=== PATIENT | female | born 1955 | race Caucasian/White ===

== ENCOUNTER 2018-09-07 05:31 | Inpatient (IN) | payer BC ==
[~2018-09-07] VITALS: Ht 177.8 cm; Wt 89.2 kg
[~2018-09-07 05:31] MED LIST: ASPI81CH PO; ATOR20 PO; BENA20 PO; CHOL10002; ESTMET; ESTR.75; FISH1000 PO; METO50 PO; PROACE100 PO; RXPROACE PO
[2018-09-07] MEDS ORDERED: AZIT250 PO (06:21)
[2018-09-07] MEDS ORDERED: PRED20 PO (06:21)
[2018-09-07] MEDS ORDERED: METO25 PO (06:22)
[2018-09-07] MEDS ORDERED: Ventolin/Prove6.7 GM (06:22)
[2018-09-07] MEDS ORDERED: ELIQUIS5 MG PO (06:22)
[2018-09-07] MEDS ORDERED: HYDHOMSY (06:22)
[2018-09-07] MEDS ORDERED: Benazepril HCl40 MG PO (06:22)
[2018-09-07 07:05] LABS: BASOPHILS ABSOLUTE AUTO 0.03 K/mm3 (0.00-0.23); BASOPHILS PERCENT AUTO 0 % (0-2); EOSINOPHILS ABSOLUTE AUTO 0.05 K/mm3 (0.00-0.68); EOSINOPHILS PERCENT AUTO 1 % (0-6); Hematocrit 40.6 % (33.0-51.0); IMMATURE GRAN ABSOLUTE AUTO 0.04 K/mm3 (0.00-0.10); IMMATURE GRAN PERCENT AUTO 0 % (0-1); LYMPHOCYTES ABSOLUTE AUTO 1.12 K/mm3 (0.84-5.20); LYMPHOCYTES PERCENT AUTO 13 % (21-46); MONOCYTES PERCENT AUTO 6 % (4-13); Mean Corpuscular HGB 31.6 pg (26.0-34.0); Mean Corpuscular Volume 99 fL (80-100); Mean Platelet Volume 9.6 fL (9.1-12.4); NEUTROPHILS ABSOLUTE AUTO 7.19 K/mm3 (1.96-9.15); NEUTROPHILS PERCENT AUTO 81 % (41-73); Platelet Count 268 K/mm3 (150-400); RDW Coefficient Variation 15.6 % (11.7-14.2); RDW Standard Deviation 56.7 fL (35.1-46.3); Red Blood Cell Count 4.11 M/mm3 (3.80-5.20); White Blood Cell Count 8.93 K/mm3 (4.00-11.30)
[2018-09-07 07:31] LABS: Alanine Aminotransfer (ALT/SGP 215 U/L (12-78); Albumin, Blood 3.6 g/dL (3.4-5.0); Alk Phos 139 U/L (50-136); Anion Gap 9 mmol/L (6-16); Aspartate Aminotrans (AST/SGOT 402 U/L (12-37); Bilirubin, Total 0.7 mg/dL (0.1-1.0); Blood Urea Nitrogen 6 mg/dL (8-24); CO2, Blood 29 mmol/L (21-32); Calcium, Blood 8.9 mg/dL (8.5-10.1); Chloride, Blood 98 mmol/L (98-108); Creatinine, Blood 0.75 mg/dL (0.40-1.00); Globulin, Blood 3.5 g/dL (2.2-4.0); Glomerular Filtration Rate >60 (60-); Glucose, Blood 131 mg/dL (70-99); Potassium, Blood 3.3 mmol/L (3.5-5.5); Sodium, Blood 136 mmol/L (136-145); Total Protein, Blood 7.1 g/dL (6.4-8.2)
--- NOTE | 2018-09-07 15:18 | NUR ---
Telephone report received from Willis Corcoran RN, at this time.
[2018-09-07] MEDS ORDERED: Flecainide Acet50 MG PO (16:09)
[2018-09-07] MEDS ORDERED: METO50ER PO (16:11)
[2018-09-07] MEDS ORDERED: ATOR40TA PO (16:12)
[2018-09-07 16:37] LABS: Source, Urine Voided
[2018-09-07 16:46] LABS: Appearance, Urine Clear (Clear); Bilirubin, Urine Neg (Neg); Blood, Urine 1+ (Neg); Color, Urine Yellow (P-Yellow); Glucose Qualitative, Urine 2+ (Neg); Ketones, Urine Neg (Neg); Leukocyte Esterase, Urine 1+ (Neg); Nitrite, Urine Pos (Neg); Protein, Urine Neg (Neg); Specific Gravity, Urine 1.015 (1.003-1.022); Urobilinogen, Urine NORM (Normal)
[2018-09-07 17:00] LABS: Bacteria Many /hpf; Red Blood Cells, Urine 0-2 /hpf (0-2); Squamous Epithelial Cells Few /hpf (Few); White Blood Cells, Urine 0-2 /hpf (0-5)
--- NOTE | 2018-09-08 00:15 | NUR ---
OXYGEN PLACE- PT WITH OXYGEN SATURATIONS OF 88-89% ON RA. O2 PLACED AT 1.5L AND SATURATIONS INCREASED TO >90% WITHIN TWO MINUTES. PT DENIES FEELING EXCESSIVELY DYSPNEIC WITH DESATURATION. WILL CONTINUE WITH MONITORING.
[2018-09-08 04:17] LABS: BASOPHILS ABSOLUTE AUTO 0.02 K/mm3 (0.00-0.23); BASOPHILS PERCENT AUTO 0 % (0-2); EOSINOPHILS PERCENT AUTO 0 % (0-6); Hematocrit 39.1 % (33.0-51.0); Hemoglobin 12.5 g/dL (11.5-16.0); IMMATURE GRAN ABSOLUTE AUTO 0.11 K/mm3 (0.00-0.10); IMMATURE GRAN PERCENT AUTO 1 % (0-1); LYMPHOCYTES ABSOLUTE AUTO 0.68 K/mm3 (0.84-5.20); LYMPHOCYTES PERCENT AUTO 5 % (21-46); MONOCYTES ABSOLUTE AUTO 0.47 K/mm3 (0.16-1.47); MONOCYTES PERCENT AUTO 4 % (4-13); Mean Corpuscular HGB 31.7 pg (26.0-34.0); Mean Corpuscular Volume 99 fL (80-100); Mean Platelet Volume 9.7 fL (9.1-12.4); NEUTROPHILS ABSOLUTE AUTO 11.43 K/mm3 (1.96-9.15); NEUTROPHILS PERCENT AUTO 90 % (41-73); NRBC ABSOLUTE 0.02 K/mm3 (0.00-0.02); NRBC Auto 0.2 /100 WBC (0.0-0.2); Platelet Count 260 K/mm3 (150-400); RDW Coefficient Variation 15.7 % (11.7-14.2); RDW Standard Deviation 56.6 fL (35.1-46.3); Red Blood Cell Count 3.94 M/mm3 (3.80-5.20); White Blood Cell Count 12.71 K/mm3 (4.00-11.30)
[2018-09-08 04:43] LABS: Alanine Aminotransfer (ALT/SGP 132 U/L (12-78); Albumin, Blood 3.3 g/dL (3.4-5.0); Albumin/Globulin Ratio 0.9 (0.8-1.8); Alk Phos 104 U/L (50-136); Anion Gap 8 mmol/L (6-16); Aspartate Aminotrans (AST/SGOT 82 U/L (12-37); Bilirubin, Total 0.6 mg/dL (0.1-1.0); Blood Urea Nitrogen 8 mg/dL (8-24); CO2, Blood 29 mmol/L (21-32); Calcium, Blood 8.6 mg/dL (8.5-10.1); Chloride, Blood 105 mmol/L (98-108); Globulin, Blood 3.6 g/dL (2.2-4.0); Glomerular Filtration Rate >60 (60-); Glucose, Blood 174 mg/dL (70-99); Potassium, Blood 3.9 mmol/L (3.5-5.5); Sodium, Blood 142 mmol/L (136-145); Total Protein, Blood 6.9 g/dL (6.4-8.2)
[2018-09-08 06:13] LABS: HBSAG SCREEN Negative (Negative); HEP B CORE AB, TOT Negative (Negative); HEP C VIRUS AB <0.1 (0.0-0.9)
--- NOTE | 2018-09-08 06:48 | NUR ---
SHIFT SUMMARY- PT HAS REMAINED AOX4 THROUGHOUT SHIFT. VSS. PLEASANT AND COOPERATIVE WITH CARE. PT CONTINUES TO BE UP INDEPENDENTLY IN ROOM WITHOUT DIFFICULTY WITH AMBULATION. PT DOES REPORT SOME DYSPNEA ON EXERTION. BSC COMMODE PROVIDED AT BEDSIDE AND PATIENT ENCOURAGED TO UTILIZE IF SHE IS FEELING EXCESSIVELY DYSPNEIC. O2 SATS HAVE REMAINED >90% SINCE 1.5L VIA NASAL CANNULA PLACED LAST NIGHT. PT REPORTS THAT SHE HAS NOT NOTICED A SIGNIFICANT CHANGE WITH OR WITHOUT OXYGEN, BUT REPORTS THAT SHE WAS ABLE TO SLEEP BETTER ONCE IT WAS PLACED. NO OTHER CHANGES NOTED FROM INITIAL ASSESSMENT. WILL CONTINUE TO MONITOR AND REPORT TO ONCOMING RN. BED IN LOW POSITION, CALL LIGHT IN REACH.
--- NOTE | 2018-09-08 09:57 | NUR ---
Virgilio states that she feels that her breathing is much better than yesterday, but reports that she still has quite a lot of shortness of breath when walking into the bathroom, and is still coughing often. States that sputum is yellow in color and she is starting to get it up more easily. no dyspnea or tachypnea noted at rest. No other compliants or concerns voiced at this time. Heart rhythm is normal sinus rhythm.
--- NOTE | 2018-09-08 18:37 | NUR ---
The pt was able to ambulate once in the hallway today, and has also been ambulatory to the bathroom and in her room; however, she does have frequent coughing episodes, with minimal expectoration of phlegm. Dr. Mota started her on mucinex today for that. Once today she was very anxious, tearful and stated that she was feeling "overwhelmed" and short of breath. This occured just after a "coughing fit" in which she was unable to breathe she felt, and panicked. Oral ativan was given to her, as well as Tylenol to reduce her anxiety and headache which she had from the frequent coughing. She stated afterwards that this was very helpful. I also called Jena Becerril to pay the pt a visit as the pt states she has been going through a lot of stress recently; her father just before 2017, and her has dialysis 3 x /week, 5 hours each time. This hospitalization has of course added to her recent stress level.
--- NOTE | 2018-09-09 04:40 | NUR ---
SHIFT SUMMARY THE PATIENT PRESENTED THIS SHIFT WITH VITALS WNL, A&O X4 AND WITH LUNGS THAT WERE CLEAR, BUT DIM AT THE BASES, THE PATIENT RECEIVED MEDICATIONS FOR ANXIETY AND FOR RADIP HEART RATE (A-FIB), WHICH STARTED AT 0230. THE PATIENT IS A-SYMPTOMATIC, SLEEPING AT THAT TIME. THE PATIENT IS SLEEPING AT THIS TIME, WILL CONTINUE TO MONITOR.
[2018-09-09 08:56] LABS: Hematocrit 44.4 % (33.0-51.0); Hemoglobin 14.5 g/dL (11.5-16.0); Mean Corpuscular HGB 31.6 pg (26.0-34.0); Mean Corpuscular HGB Conc 32.7 g/dL (31.5-36.5); Mean Corpuscular Volume 97 fL (80-100); Mean Platelet Volume 9.8 fL (9.1-12.4); NRBC ABSOLUTE 0.02 K/mm3 (0.00-0.02); NRBC Auto 0.1 /100 WBC (0.0-0.2); Platelet Count 322 K/mm3 (150-400); RDW Coefficient Variation 15.8 % (11.7-14.2); Red Blood Cell Count 4.59 M/mm3 (3.80-5.20); White Blood Cell Count 18.05 K/mm3 (4.00-11.30)
--- NOTE | 2018-09-09 09:01 | NUR ---
NURSING PCU DAYSHIFT: Assumed care of pt at approx 0700. A/O, very pleasant and cooperative w/care. Denies any pain/discomfort. Very mild general weakness, able to ambulate independently and w/o difficulty. Skin is intact w/no breakdown noted. Tele in place, afib w/HR 140-150's, no c/o CP/pressure, BP stable, no noted edema. L/S fairly cta t/o w/dim bases, O2 sat 90 on RA, dyspnea w/minimal exertion, constant hacking cough producing thick/yellow sputum. Abd SNT, c/o loose stools, BT+, voiding w/o difficulty per pt. PIV x1, s/l w/abx as scheduled. No s/s of acute distress at this time. Call light in reach and pt is able to use w/o difficulty. Denies any current needs or questions regarding plan of care, awaiting rounding from PMD, cont to monitor for any changes.
[2018-09-09 09:18] LABS: Alanine Aminotransfer (ALT/SGP 112 U/L (12-78); Albumin, Blood 3.6 g/dL (3.4-5.0); Albumin/Globulin Ratio 0.9 (0.8-1.8); Alk Phos 102 U/L (50-136); Anion Gap 10 mmol/L (6-16); Aspartate Aminotrans (AST/SGOT 48 U/L (12-37); Bilirubin, Total 0.6 mg/dL (0.1-1.0); Blood Urea Nitrogen 14 mg/dL (8-24); Bun/Creatinine Ratio 17.2 (12.0-20.0); CO2, Blood 26 mmol/L (21-32); Calcium, Blood 9.4 mg/dL (8.5-10.1); Chloride, Blood 104 mmol/L (98-108); Creatinine, Blood 0.81 mg/dL (0.40-1.00); Globulin, Blood 3.8 g/dL (2.2-4.0); Glomerular Filtration Rate >60 (60-); Glucose, Blood 196 mg/dL (70-99); Potassium, Blood 4.2 mmol/L (3.5-5.5); Sodium, Blood 140 mmol/L (136-145); Total Protein, Blood 7.4 g/dL (6.4-8.2)
--- NOTE | 2018-09-09 17:41 | NUR ---
NURSING PCU DAYSHIFT SUMMARY: No significant changes noted t/o the shift. HR remains 130-160's though pt is non-symptomatic. Continues to cough frequently and experience dyspnea w/exertion. Able to ambulate halls slowly and participate in deep breathing exercises. Family at bedside t/o the afternoon, update provided, questions answered. Spoke w/PMD regarding HR, new d/o received. OT IV metoprolol to be administered as ordered. Tele remains in place, cont to monitor until rpt is given to NOC RN.
[2018-09-10 04:21] LABS: BASOPHILS ABSOLUTE AUTO 0.03 K/mm3 (0.00-0.23); BASOPHILS PERCENT AUTO 0 % (0-2); EOSINOPHILS ABSOLUTE AUTO 0.04 K/mm3 (0.00-0.68); EOSINOPHILS PERCENT AUTO 0 % (0-6); Hematocrit 43.9 % (33.0-51.0); Hemoglobin 14.1 g/dL (11.5-16.0); IMMATURE GRAN ABSOLUTE AUTO 0.21 K/mm3 (0.00-0.10); IMMATURE GRAN PERCENT AUTO 1 % (0-1); LYMPHOCYTES PERCENT AUTO 15 % (21-46); MONOCYTES ABSOLUTE AUTO 1.06 K/mm3 (0.16-1.47); MONOCYTES PERCENT AUTO 7 % (4-13); Mean Corpuscular HGB 31.1 pg (26.0-34.0); Mean Corpuscular HGB Conc 32.1 g/dL (31.5-36.5); Mean Corpuscular Volume 97 fL (80-100); Mean Platelet Volume 9.8 fL (9.1-12.4); NEUTROPHILS PERCENT AUTO 76 % (41-73); Platelet Count 298 K/mm3 (150-400); RDW Coefficient Variation 15.7 % (11.7-14.2); RDW Standard Deviation 55.3 fL (35.1-46.3); Red Blood Cell Count 4.53 M/mm3 (3.80-5.20); White Blood Cell Count 14.64 K/mm3 (4.00-11.30)
[2018-09-10 04:42] LABS: Anion Gap 7 mmol/L (6-16); Blood Urea Nitrogen 15 mg/dL (8-24); Bun/Creatinine Ratio 15.6 (12.0-20.0); CO2, Blood 29 mmol/L (21-32); Calcium, Blood 8.8 mg/dL (8.5-10.1); Chloride, Blood 105 mmol/L (98-108); Creatinine, Blood 0.96 mg/dL (0.40-1.00); Glomerular Filtration Rate >60 (60-); Glucose, Blood 94 mg/dL (70-99); Potassium, Blood 4.2 mmol/L (3.5-5.5); Sodium, Blood 141 mmol/L (136-145)
--- NOTE | 2018-09-10 05:52 | NUR ---
SHIFT SUMMARY PT ALERT AND ORIENTED X 3. SHE SLEPT WELL T/O SHIFT. PT DENIED ANY UNMET NEEDS. HER RATE HAS BEEN WELL CONTROLLED AFIB IN THE 80'S. SHE HAS BEEN INDEPENDENT IN THE ROOM. SHE DID HAVE SOME COMPLAINTS OF HEADACHE AND LUNG PAIN RELATED TO COUGHING. SHE WAS PROVIDED ORDERED MEDS AND DENIED ANY FURTHER ISSUES. PT USES CALL LIGHT TO MAKE NEEDS KNOWN. SHE WILL CONTINUE TO BE MONITORED UNTIL HANDOFF TO DAYSHIFT RN.
--- NOTE | 2018-09-10 08:14 | NUR ---
NURSING PCU DAYSHIFT: Assumed care of pt at approx 0700. A/O, pleasant, cooperative w/care. C/O 6-8/10 chest/rib pain r/t coughing, treating w/meds as ordered and rest. Skin is intact w/no breakdown noted. Ambulates independently w/o difficulty. Tele in place, afib w/HR 130-140, no c/o cardiac related CP/pressure, HTN noted, no noted edema. L/S fairlyc cta t/o, O2 sat 90's on RA, dyspnea w/exertion, hacking/productive cough. Abd SNT, BT+, c/o loose stool, voiding clear/yellow urine. PIV x1, s/l. No s/s of acute distress at this time. Plan to monitor HR after administration of a.m. meds, will give PRN metoprolol if indication. Pt denies any current needs or questions regarding plan of care, call light in reach. Awaiting rounding from PMD, cont to monitor for any changes.
[2018-09-10] MEDS ORDERED: METO50ER PO (18:33)
[2018-09-10] MEDS ORDERED: ACETAMINOPHEN500 MG PO (18:34)
[2018-09-10] MEDS ORDERED: GUAI600T33 PO (18:36)
[2018-09-10] MEDS ORDERED: LANOXIN125 MCG PO (18:36)
[2018-09-10] MEDS ORDERED: LEVFLO500 PO (18:37)
--- NOTE | 2018-09-10 19:13 | NUR ---
NURSING PCU DISCHARGE SUMMARY: No acute changes t/o the shift. Seen by PMD, new d/o received. Digoxin gtt administered, PO metoprolol dose increased. HR showed some improvement t/o the afternoon w/HR 90-130's, respiratory status unchanged. Seen by PMD again in the afternoon, discharge home d/o received. Pt verbalized understanding of all written and verbal discharge instructions provided by CN. PIV dc'd w/cath intact, escorted from unit via w/c, no s/s of acute distress at that time.
== END 2018-09-10 19:05 | disposition home or self-care (01) | DRG 189 ==
LOC: ER 05:31 → PCU 12:47
PROVIDERS: Internal Medicine; ADMIT Family Medicine
DX: J96.21 Acute and chronic respiratory failure with hypoxia (principal); N39.0 Urinary tract infection, site not specified; J44.1 Chronic obstructive pulmonary disease with (acute) exacerbation; B96.20 Unspecified Escherichia coli [E. coli] as the cause of diseases classified elsewhere; K80.20 Calculus of gallbladder without cholecystitis without obstruction; K75.81 Nonalcoholic steatohepatitis (NASH); I48.0 Paroxysmal atrial fibrillation; E11.9 Type 2 diabetes mellitus without complications; I10 Essential (primary) hypertension; E87.6 Hypokalemia; R79.89 Other specified abnormal findings of blood chemistry; E78.5 Hyperlipidemia, unspecified; Z88.5 Allergy status to narcotic agent; Z79.52 Long term (current) use of systemic steroids; Z79.899 Other long term (current) drug therapy; Z87.891 Personal history of nicotine dependence
CPT/HCPCS: 36415; 71046; 76700; 80048; 80053; 81001; 83690; 85025; 85027; 86317; 86704; 86708; 86803; 87070; 87077; 87086; 87186; 87205; 87340; 93005; 93010; 94640; 94644; 94760; 94762; 96365; 96375; 99285-25; J0456; J0696; J1160; J2930; J7050

== ENCOUNTER → 2020-05-16 | Outpatient (CLI) | payer BC ==
[~2020-05-16] MED LIST changes: +ACETAMINOPHEN500 MG PO; +ATOR40TA PO; +AZIT250 PO; +Benazepril HCl40 MG PO; +ELIQUIS5 MG PO; +Flecainide Acet50 MG PO; +GUAI600T33 PO; +HYDHOMSY; +LANOXIN125 MCG PO; +LEVFLO500 PO; +METO25 PO; +METO50ER PO; +PRED20 PO; +Ventolin/Prove6.7 GM
== END | disposition home or self-care (01) ==
LOC: LAB SHORT 08:45 → LAB EV 08:45
DX: N39.0 Urinary tract infection, site not specified (principal)
CPT/HCPCS: 87077; 87086; 87186

== ENCOUNTER 2022-09-26 23:52 | Emergency (ER) | payer OTHER, BC ==
[~2022-09-26] VITALS: Ht 177.8 cm; Wt 72.6 kg
[2022-09-27 01:39] LABS: Source, Urine Clean Catch
[2022-09-27 01:51] LABS: Appearance, Urine Hazy (Clear); Bilirubin, Urine Neg (Neg); Blood, Urine Neg (Neg); Color, Urine Yellow (P-Yellow); Glucose Qualitative, Urine Neg (Neg); Ketones, Urine Neg (Neg); Leukocyte Esterase, Urine 1+ (Neg); Nitrite, Urine Pos (Neg); Protein, Urine 1+ (Neg); Specific Gravity, Urine 1.025 (1.003-1.022); Urobilinogen, Urine 1+ (Normal)
[2022-09-27 01:59] LABS: Bacteria Many /hpf; Red Blood Cells, Urine 0-2 /hpf (0-2); Squamous Epithelial Cells Mod /hpf (Few)
== END 2022-09-27 02:19 | disposition home or self-care (01) ==
LOC: ER 23:52
PROVIDERS: Student in an Organized Health Care Education/Training Program
DX: R10.32 Left lower quadrant pain (principal); W01.198A Fall on same level from slipping, tripping and stumbling with subsequent striking against other object, initial encounter; I48.0 Paroxysmal atrial fibrillation; I10 Essential (primary) hypertension; E11.9 Type 2 diabetes mellitus without complications; Z88.5 Allergy status to narcotic agent; Z79.899 Other long term (current) drug therapy; Z79.01 Long term (current) use of anticoagulants; Z87.891 Personal history of nicotine dependence
CPT/HCPCS: 71101; 81001; 87077; 87086; 87186; 96372; 99284-25; A9270; J1885

== ENCOUNTER 2023-04-11 00:16 | Emergency (ER) | payer OTHER ==
[~2023-04-11] VITALS: Ht 177.8 cm; Wt 69.4 kg
[2023-04-11 01:02] LABS: BASOPHILS ABSOLUTE AUTO 0.12 K/mm3 (0.00-0.23); BASOPHILS PERCENT AUTO 2 % (0-2); EOSINOPHILS ABSOLUTE AUTO 0.38 K/mm3 (0.00-0.68); EOSINOPHILS PERCENT AUTO 5 % (0-6); Hematocrit 41.5 % (33.0-51.0); Hemoglobin 13.7 g/dL (11.5-16.0); IMMATURE GRAN ABSOLUTE AUTO 0.02 K/mm3 (0.00-0.10); IMMATURE GRAN PERCENT AUTO 0 % (0-1); LYMPHOCYTES ABSOLUTE AUTO 2.04 K/mm3 (0.84-5.20); LYMPHOCYTES PERCENT AUTO 29 % (21-46); MONOCYTES ABSOLUTE AUTO 0.64 K/mm3 (0.16-1.47); MONOCYTES PERCENT AUTO 9 % (4-13); Mean Corpuscular HGB 32.2 pg (26.0-34.0); Mean Corpuscular Volume 98 fL (80-100); Mean Platelet Volume 9.3 fL (9.1-12.4); NEUTROPHILS ABSOLUTE AUTO 3.87 K/mm3 (1.96-9.15); NEUTROPHILS PERCENT AUTO 55 % (41-73); Platelet Count 279 K/mm3 (150-400); RDW Standard Deviation 50.7 fL (35.1-46.3); Red Blood Cell Count 4.25 M/mm3 (3.80-5.20); White Blood Cell Count 7.07 K/mm3 (4.00-11.30)
[2023-04-11 01:27] LABS: Albumin, Blood 3.3 g/dL (3.4-5.0); Albumin/Globulin Ratio 0.9 (0.8-1.8); Bilirubin, Total 0.4 mg/dL (0.1-1.0); Bun/Creatinine Ratio 5.2 (12.0-20.0); Calcium, Blood 8.8 mg/dL (8.5-10.1); Creatinine, Blood 0.58 mg/dL (0.40-1.00); Globulin, Blood 3.6 g/dL (2.2-4.0); Potassium, Blood 3.9 mmol/L (3.5-5.5); Total Protein, Blood 6.9 g/dL (6.4-8.2)
[2023-04-11] MEDS ORDERED: PRED20 PO (04:23)
[2023-04-11 04:49] VITALS: BP 121/74
== END 2023-04-11 04:49 | disposition home or self-care (01) ==
LOC: ER 00:16
PROVIDERS: Physician Assistant
DX: J44.1 Chronic obstructive pulmonary disease with (acute) exacerbation (principal); I48.20 Chronic atrial fibrillation, unspecified; I10 Essential (primary) hypertension; E11.9 Type 2 diabetes mellitus without complications; Z20.822 Contact with and (suspected) exposure to COVID-19; Z88.5 Allergy status to narcotic agent; Z79.899 Other long term (current) drug therapy; Z79.01 Long term (current) use of anticoagulants; Z79.51 Long term (current) use of inhaled steroids; Z87.891 Personal history of nicotine dependence
CPT/HCPCS: 71046; 80053; 85025; 93005; 93010; 94640; 94664; 99285-25; A9270; J7512

== ENCOUNTER → 2023-11-14 | Outpatient (CLI) | payer MEDICARE | LOC: LAB SHORT 10:28 → LAB 10:28 | DX: R30.0 Dysuria (principal); R35.0 Frequency of micturition | CPT/HCPCS: 87077; 87086; 87186 ==

== ENCOUNTER 2024-02-22 10:01 | Emergency (ER) | payer OTHER, MEDICARE ==
[~2024-02-22] VITALS: Ht 175.3 cm; Wt 70.3 kg
[2024-02-22] MEDS ORDERED: Metoclopramide HCl 5MG / ML 2ML Vial IV ONE (10:20)
[2024-02-22] MEDS ORDERED: DiphenhydrAMINE HCl 50 MG/ML 1ML Vial IV ONE (10:20)
[2024-02-22] MEDS ORDERED: NS 1,000 ML IV SCH (10:20)
[2024-02-22 10:26] LABS: BASOPHILS ABSOLUTE AUTO 0.14 K/mm3 (0.00-0.23); BASOPHILS PERCENT AUTO 1 % (0-2); EOSINOPHILS ABSOLUTE AUTO 0.05 K/mm3 (0.00-0.68); EOSINOPHILS PERCENT AUTO 0 % (0-6); Hematocrit 40.6 % (33.0-51.0); Hemoglobin 14.2 g/dL (11.5-16.0); IMMATURE GRAN ABSOLUTE AUTO 0.03 K/mm3 (0.00-0.10); IMMATURE GRAN PERCENT AUTO 0 % (0-1); LYMPHOCYTES ABSOLUTE AUTO 0.77 K/mm3 (0.84-5.20); LYMPHOCYTES PERCENT AUTO 7 % (21-46); MONOCYTES ABSOLUTE AUTO 0.66 K/mm3 (0.16-1.47); MONOCYTES PERCENT AUTO 6 % (4-13); Mean Corpuscular HGB 33.8 pg (26.0-34.0); Mean Corpuscular Volume 97 fL (80-100); Mean Platelet Volume 9.8 fL (9.1-12.4); NEUTROPHILS ABSOLUTE AUTO 10.05 K/mm3 (1.96-9.15); NEUTROPHILS PERCENT AUTO 86 % (41-73); Platelet Count 367 K/mm3 (150-400); RDW Coefficient Variation 13.9 % (11.7-14.2); RDW Standard Deviation 48.7 fL (35.1-46.3)
[2024-02-22 10:46] LABS: Alanine Aminotransfer (ALT/SGP 44 U/L (12-78); Albumin, Blood 3.1 g/dL (3.4-5.0); Albumin/Globulin Ratio 0.8 (0.8-1.8); Alk Phos 192 U/L (50-136); Anion Gap 18 mmol/L (3-11); Aspartate Aminotrans (AST/SGOT 145 U/L (12-37); Blood Urea Nitrogen 6 mg/dL (8-24); Bun/Creatinine Ratio 12.5 (12.0-20.0); CO2, Blood 22 mmol/L (21-32); Calcium, Blood 8.4 mg/dL (8.5-10.1); Chloride, Blood 95 mmol/L (98-108); Creatinine, Blood 0.48 mg/dL (0.40-1.00); Glomerular Filtration Rate 104 (60-); Glucose, Blood 142 mg/dL (70-99); Magnesium, Blood 1.2 mg/dL (1.6-2.4); Potassium, Blood 4.1 mmol/L (3.5-5.5); Sodium, Blood 131 mmol/L (136-145); Total Protein, Blood 7.1 g/dL (6.4-8.2)
[2024-02-22 11:44] LABS: Influenza A, PCR NEGATIVE (NEGATIVE); Influenza B, PCR NEGATIVE (NEGATIVE); Resp Syncytial Virus, PCR NEGATIVE (NEGATIVE)
[2024-02-22 11:53] LABS: SARS-Cov-2 (COVID-19) PCR, MMC POSITIVE (NEGATIVE)
[2024-02-22] MEDS ORDERED: Magnesium Sulf 2 GM/Water 50ML 50 ML IV ONE (12:00)
[2024-02-22 13:13] LABS: Source, Urine Clean Catch
[2024-02-22] MEDS ORDERED: Metoprolol Succinate 50 MG TABCR PO ONE (13:15)
[2024-02-22 13:17] LABS: Appearance, Urine Clear (Clear); Bilirubin, Urine Neg (Neg); Blood, Urine 1+ (Neg); Color, Urine Yellow (P-Yellow); Glucose Qualitative, Urine Neg (Neg); Ketones, Urine 2+ (Neg); Leukocyte Esterase, Urine 1+ (Neg); Nitrite, Urine Neg (Neg); Protein, Urine 1+ (Neg); Specific Gravity, Urine 1.015 (1.003-1.022); Urobilinogen, Urine 1+ (Normal); pH, Urine 6.5 (5.0-8.0)
[2024-02-22 13:25] LABS: Bacteria Rare /hpf; Red Blood Cells, Urine 0-2 /hpf (0-2); Squamous Epithelial Cells Rare /hpf (Few)
[2024-02-22 14:13] LABS: Digoxin (Lanoxin) 0.52 ug/mL (0.80-2.00)
[2024-02-22] MEDS ORDERED: Digoxin 0.25 MG Tab PO ONE (14:30)
[2024-02-22 15:04] VITALS: BP 141/89
[2024-02-22] MEDS ORDERED: METO10 PO (15:10)
[2024-02-22] MEDS ORDERED: Metoclopramide HCl 10 MG Tab PO ONE (15:25)
== END 2024-02-22 15:35 | disposition home or self-care (01) ==
LOC: ER 10:01
PROVIDERS: Student in an Organized Health Care Education/Training Program
DX: U07.1 COVID-19 (principal); S09.90XA Unspecified injury of head, initial encounter; E83.42 Hypomagnesemia; E11.65 Type 2 diabetes mellitus with hyperglycemia; I10 Essential (primary) hypertension; I48.0 Paroxysmal atrial fibrillation; W01.0XXA Fall on same level from slipping, tripping and stumbling without subsequent striking against object, initial encounter; Z87.891 Personal history of nicotine dependence; Z79.52 Long term (current) use of systemic steroids; Z79.899 Other long term (current) drug therapy; Z88.5 Allergy status to narcotic agent
CPT/HCPCS: 0241U; 70450; 72125; 80053; 80162; 81001; 83690; 83735; 84484; 85025; 87086; 93005; 93010; 96361; 96365; 96366; 96375; 99285-25; A9270; J1200; J2765; J3475; J7030

== ENCOUNTER 2024-04-03 08:49 | Inpatient (IN) | payer MEDICARE ==
[~2024-04-03] VITALS: Ht 178 cm; Wt 72.1 kg
[~2024-04-03 08:49] MED LIST changes: +AMOX-CLAV 875-1 EAC5 PO; +BENAZEPRIL HCL10 MG PO; +DIGOX125 MC1 PO; +METO10 PO; +NEURONTIN300 MG PO; +ONDA4ODT MM; +Toprol Xl200 MG PO
[2024-04-03 09:27] LABS: BASOPHILS ABSOLUTE AUTO 0.16 K/mm3 (0.00-0.23); BASOPHILS PERCENT AUTO 1 % (0-2); EOSINOPHILS ABSOLUTE AUTO 2.77 K/mm3 (0.00-0.68); EOSINOPHILS PERCENT AUTO 24 % (0-6); Hematocrit 41.2 % (33.0-51.0); Hemoglobin 13.9 g/dL (11.5-16.0); IMMATURE GRAN ABSOLUTE AUTO 0.02 K/mm3 (0.00-0.10); IMMATURE GRAN PERCENT AUTO 0 % (0-1); LYMPHOCYTES ABSOLUTE AUTO 1.24 K/mm3 (0.84-5.20); LYMPHOCYTES PERCENT AUTO 11 % (21-46); MONOCYTES ABSOLUTE AUTO 0.94 K/mm3 (0.16-1.47); MONOCYTES PERCENT AUTO 8 % (4-13); Mean Corpuscular HGB 34.2 pg (26.0-34.0); Mean Corpuscular HGB Conc 33.7 g/dL (31.5-36.5); Mean Corpuscular Volume 101 fL (80-100); Mean Platelet Volume 9.4 fL (9.1-12.4); NEUTROPHILS ABSOLUTE AUTO 6.47 K/mm3 (1.96-9.15); NEUTROPHILS PERCENT AUTO 56 % (41-73); Platelet Count 329 K/mm3 (150-400); RDW Standard Deviation 56.1 fL (35.1-46.3); Red Blood Cell Count 4.07 M/mm3 (3.80-5.20)
[2024-04-03 09:43] LABS: Albumin/Globulin Ratio 0.8 (0.8-1.8); Bilirubin, Total 0.7 mg/dL (0.1-1.0); Bun/Creatinine Ratio 11.7 (12.0-20.0); Calcium, Blood 8.9 mg/dL (8.5-10.1); Creatinine, Blood 0.52 mg/dL (0.40-1.00); Globulin, Blood 3.9 g/dL (2.2-4.0); Potassium, Blood 4.2 mmol/L (3.5-5.5); Total Protein, Blood 6.9 g/dL (6.4-8.2)
[2024-04-03] MEDS ORDERED: Albuterol 2.5 MG/3 ML VIAL INH SCH (11:30)
[2024-04-03] MEDS ORDERED: MethylPREDNISolone Sod Succ 125 MG Vial IV ONE (11:30)
[2024-04-03] MEDS ORDERED: Ipratropium/Albuterol SulF 2.5-0.5MG/3 ML Amp INH ONE (12:55)
[2024-04-03] MEDS ORDERED: Ipratropium/Albuterol SulF 2.5-0.5MG/3 ML Amp INH SCH (13:05)
[2024-04-03] MEDS ORDERED: Albuterol 2.5 MG/3 ML VIAL INH PRN (13:10)
[2024-04-03 13:53] VITALS: BP 142/71
[2024-04-03] MEDS ORDERED: Cefepime HCl 2,000 MG in NS 100 ML IV SCH (14:00)
--- NOTE | 2024-04-03 16:53 | NUR ---
NEW ADMIT ARRIVED A/O VERY PLEASENT AND COOPERATIVE, PT VERY TREMULOUS AND AFEBRILE, ADMISSION DATA BASE DONE. PT CALMLY LAYING IN BED AND HAS NO S/S OF DISTRESS NO C/O PAIN
[2024-04-03] MEDS ORDERED: MethylPREDNISolone Sod Succ 40 MG VIAL IV SCH (18:00)
[2024-04-03] MEDS ORDERED: NS 250 ML IV PRN (19:20)
[2024-04-03 19:52] VITALS: BP 147/79
[2024-04-03] MEDS ORDERED: Apixaban 5 MG Tab PO SCH (21:00)
[2024-04-03] MEDS ORDERED: Gabapentin 300 MG Cap PO SCH (21:00)
[2024-04-03] MEDS ORDERED: Metoprolol Succinate 50 MG TABCR PO SCH (21:00)
--- NOTE | 2024-04-03 23:25 | NUR ---
RESPIRATORY PANEL SWAB COLLECTED AND SENT TO LAB.
[2024-04-04 00:03] LABS: Influenza A, PCR NEGATIVE (NEGATIVE); Influenza B, PCR NEGATIVE (NEGATIVE); Resp Syncytial Virus, PCR NEGATIVE (NEGATIVE); SARS-Cov-2 (COVID-19) PCR, MMC NEGATIVE (NEGATIVE)
[2024-04-04] MEDS ORDERED: Loperamide HCl 2 MG Cap PO PRN (01:35)
--- NOTE | 2024-04-04 04:04 | NUR ---
SHIFT SUMMARY PATIENT HAD NO ACUTE CHANGES. AXOX 4, TREMULOUS, AND INDEPENDENT IN ROOM. ELLE CHEST PAIN AND N/V. VSS/AFEBRILE. RT IN FOR BREATHING TX. TELE MONITOR AFIB 100. REPORTED DIARRHEA AT SHIFT CHANGE AND HOSPITALIST DR FIGUEROA ORDERED IMODIUM 2 MG Q4 PRN. NON NEEDED AT THIS TIME. REPORTS HER A FEW WEEKS AGO AND MISSES HIS PHONE CALLS. CALL LIGHT IN REACH. BED IN LOWEST POSITION. WILL CONTINUE TO MONITOR UNTIL DAY SHIFT NURSE ASSUMES CARE.
[2024-04-04 04:23] VITALS: BP 146/95
[2024-04-04 05:12] LABS: BASOPHILS PERCENT AUTO 0 % (0-2); EOSINOPHILS ABSOLUTE AUTO 0.01 K/mm3 (0.00-0.68); EOSINOPHILS PERCENT AUTO 0 % (0-6); Hematocrit 38.9 % (33.0-51.0); Hemoglobin 13.1 g/dL (11.5-16.0); IMMATURE GRAN ABSOLUTE AUTO 0.05 K/mm3 (0.00-0.10); IMMATURE GRAN PERCENT AUTO 1 % (0-1); LYMPHOCYTES ABSOLUTE AUTO 0.67 K/mm3 (0.84-5.20); LYMPHOCYTES PERCENT AUTO 8 % (21-46); MONOCYTES ABSOLUTE AUTO 0.37 K/mm3 (0.16-1.47); MONOCYTES PERCENT AUTO 4 % (4-13); Mean Corpuscular HGB Conc 33.7 g/dL (31.5-36.5); Mean Corpuscular Volume 101 fL (80-100); Mean Platelet Volume 9.9 fL (9.1-12.4); NEUTROPHILS ABSOLUTE AUTO 7.22 K/mm3 (1.96-9.15); NEUTROPHILS PERCENT AUTO 87 % (41-73); Platelet Count 283 K/mm3 (150-400); RDW Coefficient Variation 14.6 % (11.7-14.2); RDW Standard Deviation 54.7 fL (35.1-46.3); Red Blood Cell Count 3.85 M/mm3 (3.80-5.20); White Blood Cell Count 8.32 K/mm3 (4.00-11.30)
[2024-04-04 05:53] LABS: Anion Gap 14 mmol/L (3-11); Blood Urea Nitrogen 9 mg/dL (8-24); Bun/Creatinine Ratio 18.2 (12.0-20.0); CO2, Blood 24 mmol/L (21-32); Calcium, Blood 9.5 mg/dL (8.5-10.1); Chloride, Blood 100 mmol/L (98-108); Digoxin (Lanoxin) 1.06 ug/mL (0.80-2.00); Glomerular Filtration Rate 103 (60-); Glucose, Blood 158 mg/dL (70-99); Potassium, Blood 5.2 mmol/L (3.5-5.5); Sodium, Blood 133 mmol/L (136-145)
[2024-04-04 08:21] VITALS: BP 140/95
[2024-04-04] MEDS ORDERED: Gabapentin 300 MG Cap PO SCH (09:00)
[2024-04-04] MEDS ORDERED: Aspirin 81 MG Chew PO SCH (09:00)
[2024-04-04] MEDS ORDERED: Lisinopril 10 MG Tab PO SCH (09:00)
[2024-04-04 15:09] VITALS: BP 130/79
--- NOTE | 2024-04-04 16:09 | NUR ---
UNEVENTFUL DAY FOR PT, HAS BEEN QUIETLY LAYING IN BED NO S/S OF DISTRESS, VSS. STATES SHE FEELS MUCH BETTER. PT HAS INDEPENDANT IN ROOM AND HAS BEEN CALL APPROPRIATLY. PT ABLE TO MAKE NEEDS KNOWN
[2024-04-04] MEDS ORDERED: Albuterol 2.5 MG/3 ML VIAL INH PRN (18:45)
[2024-04-04 19:56] VITALS: BP 132/93
[2024-04-05] MEDS ORDERED: MethylPREDNISolone Sod Succ 40 MG VIAL IV SCH
[2024-04-05 02:40] VITALS: BP 143/94
--- NOTE | 2024-04-05 04:12 | NUR ---
SHIFT SUMMARY PATIENT HAD NO ACUTE CHANGES. AXOX 4 AND INDEPENDENT IN ROOM. PIV INTACT. IV SOLU-MEDROL AND IV ABX GIVEN PER EMAR. RT CHECKS ON PT. DENIES CHEST PAIN, SOB, AND N/V. VSS/AFEBRILE. REPORTED WANTED TO GET TO SLEEP EARLY. CALL LIGHT IN REACH. BED IN LOWEST POSITION. WILL CONTINUE TO MONITOR UNTIL DAY SHIFT NURSE ASSUMES CARE.
[2024-04-05 04:52] LABS: BASOPHILS ABSOLUTE AUTO 0.01 K/mm3 (0.00-0.23); BASOPHILS PERCENT AUTO 0 % (0-2); EOSINOPHILS ABSOLUTE AUTO 0.01 K/mm3 (0.00-0.68); EOSINOPHILS PERCENT AUTO 0 % (0-6); Hematocrit 35.5 % (33.0-51.0); Hemoglobin 12.1 g/dL (11.5-16.0); IMMATURE GRAN ABSOLUTE AUTO 0.02 K/mm3 (0.00-0.10); IMMATURE GRAN PERCENT AUTO 0 % (0-1); LYMPHOCYTES ABSOLUTE AUTO 0.56 K/mm3 (0.84-5.20); LYMPHOCYTES PERCENT AUTO 6 % (21-46); MONOCYTES ABSOLUTE AUTO 0.34 K/mm3 (0.16-1.47); MONOCYTES PERCENT AUTO 4 % (4-13); Mean Corpuscular HGB 34.1 pg (26.0-34.0); Mean Corpuscular HGB Conc 34.1 g/dL (31.5-36.5); Mean Corpuscular Volume 100 fL (80-100); Mean Platelet Volume 9.8 fL (9.1-12.4); NEUTROPHILS ABSOLUTE AUTO 8.74 K/mm3 (1.96-9.15); NEUTROPHILS PERCENT AUTO 90 % (41-73); Platelet Count 258 K/mm3 (150-400); RDW Coefficient Variation 14.6 % (11.7-14.2); RDW Standard Deviation 54.6 fL (35.1-46.3); Red Blood Cell Count 3.55 M/mm3 (3.80-5.20); White Blood Cell Count 9.68 K/mm3 (4.00-11.30)
[2024-04-05 05:19] LABS: Calcium, Blood 9.1 mg/dL (8.5-10.1); Creatinine, Blood 0.62 mg/dL (0.40-1.00); Potassium, Blood 4.6 mmol/L (3.5-5.5)
[2024-04-05 07:40] VITALS: BP 128/83
[2024-04-05] MEDS ORDERED: Digoxin 0.125 MG Tab PO SCH (09:00)
[2024-04-05 14:54] VITALS: BP 120/79
--- NOTE | 2024-04-05 18:04 | NUR ---
UNEVENTFUL DAY FOR PT, PLEASENT AND IN GOOD SPIRITS, PT STATES SHE WILL STAY LONG SHE NEEDS TOO. PT AMB IN ROOM STEADY ON FEET AND INDEPENDANT. NEW IV INFUSING IN LEFT FA. PT HAS NO COMPLAINTS AND IS ABLE TO MAKE NEEDS KNOWN.
[2024-04-05 19:40] VITALS: BP 141/85
[2024-04-06 03:05] VITALS: BP 142/92
--- NOTE | 2024-04-06 04:28 | NUR ---
BIOLOGY SPECIMEN TECHNICIAN NOTE PATIENT IS A&OX4, BP IS SLIGHTLY ELEVATED, ON ROOM AIR, ON TELE RUNNING A-FIB AT 97. PATIENT HAS A CONSTENT UNPRODUCTIVE COUGH, HAS NEB TREATMENT ORDERED HERE FOR ACUTE ON CHRONIC RESP FAILURE. PATIENT IS INDEPENDENT IN ROOM, CALLS APPROPRIATELY. PLAN POSSOBLE D/C TODAY DURING DAY SHIFT
[2024-04-06 05:25] LABS: BASOPHILS ABSOLUTE AUTO 0.01 K/mm3 (0.00-0.23); BASOPHILS PERCENT AUTO 0 % (0-2); EOSINOPHILS ABSOLUTE AUTO 0.01 K/mm3 (0.00-0.68); EOSINOPHILS PERCENT AUTO 0 % (0-6); Hematocrit 36.2 % (33.0-51.0); Hemoglobin 12.1 g/dL (11.5-16.0); IMMATURE GRAN ABSOLUTE AUTO 0.04 K/mm3 (0.00-0.10); IMMATURE GRAN PERCENT AUTO 0 % (0-1); LYMPHOCYTES ABSOLUTE AUTO 0.56 K/mm3 (0.84-5.20); LYMPHOCYTES PERCENT AUTO 6 % (21-46); MONOCYTES ABSOLUTE AUTO 0.33 K/mm3 (0.16-1.47); MONOCYTES PERCENT AUTO 4 % (4-13); Mean Corpuscular HGB 33.5 pg (26.0-34.0); Mean Corpuscular HGB Conc 33.4 g/dL (31.5-36.5); Mean Corpuscular Volume 100 fL (80-100); Mean Platelet Volume 9.8 fL (9.1-12.4); NEUTROPHILS ABSOLUTE AUTO 8.55 K/mm3 (1.96-9.15); NEUTROPHILS PERCENT AUTO 90 % (41-73); Platelet Count 246 K/mm3 (150-400); RDW Coefficient Variation 14.5 % (11.7-14.2); RDW Standard Deviation 53.8 fL (35.1-46.3); Red Blood Cell Count 3.61 M/mm3 (3.80-5.20)
[2024-04-06 05:50] LABS: Albumin, Blood 2.7 g/dL (3.4-5.0); Albumin/Globulin Ratio 0.8 (0.8-1.8); Bilirubin, Total 0.8 mg/dL (0.1-1.0); Bun/Creatinine Ratio 26.3 (12.0-20.0); Calcium, Blood 9.3 mg/dL (8.5-10.1); Creatinine, Blood 0.57 mg/dL (0.40-1.00); Globulin, Blood 3.4 g/dL (2.2-4.0); Potassium, Blood 4.3 mmol/L (3.5-5.5); Total Protein, Blood 6.1 g/dL (6.4-8.2)
[2024-04-06 07:08] VITALS: BP 103/89
[2024-04-06 14:36] VITALS: BP 138/92
[2024-04-06] MEDS ORDERED: GABA300 PO (16:20)
[2024-04-06] MEDS ORDERED: COMBIVENT RESPIM4 G1 INH ×2 (16:23→16:33)
[2024-04-06] MEDS ORDERED: DOXY100 PO (16:26)
--- NOTE | 2024-04-06 16:33 | NUR ---
SHIFT SUMMARY. PATIENT WANTING TO GO HOME TODAY. PER WILL GO HOME TOMORROW AFTER ONE MORE DAY OF ABX. SHE RECEIVES ALBUTEROL NEBS HERE ANDNEBULIZER WILL BE ORDERED BY COLLEGE COACH AND DELIVERED TO HER HOME. PATIENT HAS HAD MUCH DIFFICULTY LATELY LOSING HER SPOUSE ONLY A FEW WEEKS AGO AND IS STILL VERY EMOTIONAL ABOUT THAT.
[2024-04-06 20:00] VITALS: BP 138/86
[2024-04-07 02:42] VITALS: BP 136/88
--- NOTE | 2024-04-07 06:22 | NUR ---
ART SUPERVISOR PATIENT IS A&OX4, VITAL IS STABLE, ON ROOM AIR, ON TELE RUNNING A-FIB, DENIED ANY PAIN. PATIENT IS INDEPENDENT IN ROOM AND IS ABLE TO MAKE NEEDS KNOWN. PLAN IS POSSIBLE [facility] TODAY
[2024-04-07 08:00] VITALS: BP 123/87
[2024-04-07] MEDS ORDERED: CEFP200 PO (10:26)
[2024-04-07] MEDS ORDERED: Prednisone10 MG PO (10:28)
--- NOTE | 2024-04-07 11:30 | NUR ---
SHIFT SUMMARY AND DISCHARGE PATIENT DISCHARGED HOME. PATIENT ALERT AND INDEPENDENT IN THE ROOM. PATIENT CONTINUES TO HAVE MOIST PRODUCTIVE. COUGH. EDUCATION PROVIDED TO PATIENT REGARDING DISEASE PROCESS, MEDICATIONS, AND PULMONARY CARE. IV DC'D BELONGINGS SENT HOME WITH PATIENT, ROOM CHECK DONE BEFORE DEPARTURE, PATIENT TRANSPORTED OUT VIA WHEELCHAIR.
== END 2024-04-07 11:25 | disposition home or self-care (01) | DRG 189 ==
LOC: ER 08:49 → MEDS 08:50 → ENPENDDIS 04-07 10:14 → MEDS 04-07 11:25
PROVIDERS: Internal Medicine; Physician Assistant; ADMIT Internal Medicine
DX: J96.01 Acute respiratory failure with hypoxia (principal); J44.1 Chronic obstructive pulmonary disease with (acute) exacerbation; F41.9 Anxiety disorder, unspecified; I48.0 Paroxysmal atrial fibrillation; I10 Essential (primary) hypertension; G47.33 Obstructive sleep apnea (adult) (pediatric); E11.319 Type 2 diabetes mellitus with unspecified diabetic retinopathy without macular edema; J43.9 Emphysema, unspecified; K75.81 Nonalcoholic steatohepatitis (NASH); J98.01 Acute bronchospasm; Z88.5 Allergy status to narcotic agent; Z79.899 Other long term (current) drug therapy; Z79.01 Long term (current) use of anticoagulants; Z79.2 Long term (current) use of antibiotics; Z85.841 Personal history of malignant neoplasm of brain; Z98.890 Other specified postprocedural states; Z90.710 Acquired absence of both cervix and uterus; Z87.891 Personal history of nicotine dependence
CPT/HCPCS: 0241U; 36415; 71046; 80048; 80053; 80162; 83880; 85025; 93005; 93010; 94640; 94644; 94664; 94760; 96365; 96374; 96375; 96376; 99285-25; A9270; G0378; J0692; J2919

== ENCOUNTER 2024-05-02 09:50 | Inpatient (IN) | payer MEDICARE ==
[~2024-05-02] VITALS: Ht 177.8 cm; Wt 70.3 kg
[~2024-05-02 09:50] MED LIST changes: +CEFP200 PO; +COMBIVENT RESPIM4 G1 INH; +DOXY100 PO; +GABA300 PO; -LANOXIN125 MCG PO; +Prednisone10 MG PO
[2024-05-02] MEDS ORDERED: Albuterol 2.5 MG/3 ML VIAL INH SCH (10:00)
[2024-05-02] MEDS ORDERED: MethylPREDNISolone Sod Succ 125 MG Vial IV ONE (10:00)
[2024-05-02] MEDS ORDERED: Magnesium Sulf 2 GM/Water 50ML 50 ML IV ONE (10:00)
[2024-05-02 10:42] LABS: BASOPHILS ABSOLUTE AUTO 0.09 K/mm3 (0.00-0.23); BASOPHILS PERCENT AUTO 1 % (0-2); EOSINOPHILS ABSOLUTE AUTO 0.55 K/mm3 (0.00-0.68); EOSINOPHILS PERCENT AUTO 6 % (0-6); Hematocrit 42.3 % (33.0-51.0); Hemoglobin 14.5 g/dL (11.5-16.0); IMMATURE GRAN ABSOLUTE AUTO 0.04 K/mm3 (0.00-0.10); IMMATURE GRAN PERCENT AUTO 0 % (0-1); LYMPHOCYTES ABSOLUTE AUTO 1.05 K/mm3 (0.84-5.20); LYMPHOCYTES PERCENT AUTO 11 % (21-46); MONOCYTES ABSOLUTE AUTO 0.89 K/mm3 (0.16-1.47); MONOCYTES PERCENT AUTO 9 % (4-13); Mean Corpuscular HGB 33.7 pg (26.0-34.0); Mean Corpuscular HGB Conc 34.3 g/dL (31.5-36.5); Mean Corpuscular Volume 98 fL (80-100); Mean Platelet Volume 9.6 fL (9.1-12.4); NEUTROPHILS ABSOLUTE AUTO 7.09 K/mm3 (1.96-9.15); NEUTROPHILS PERCENT AUTO 73 % (41-73); Platelet Count 263 K/mm3 (150-400); RDW Standard Deviation 50.6 fL (35.1-46.3); White Blood Cell Count 9.71 K/mm3 (4.00-11.30)
[2024-05-02 10:59] LABS: Albumin, Blood 3.4 g/dL (3.4-5.0); Albumin/Globulin Ratio 0.8 (0.8-1.8); Bilirubin, Total 1.2 mg/dL (0.1-1.0); Bun/Creatinine Ratio 15.5 (12.0-20.0); Calcium, Blood 9.2 mg/dL (8.5-10.1); Creatinine, Blood 0.65 mg/dL (0.40-1.00); Globulin, Blood 4.1 g/dL (2.2-4.0); Magnesium, Blood 1.5 mg/dL (1.6-2.4); Potassium, Blood 3.7 mmol/L (3.5-5.5); Total Protein, Blood 7.5 g/dL (6.4-8.2)
[2024-05-02 11:28] LABS: Influenza A, PCR NEGATIVE (NEGATIVE); Influenza B, PCR NEGATIVE (NEGATIVE); Resp Syncytial Virus, PCR NEGATIVE (NEGATIVE); SARS-Cov-2 (COVID-19) PCR, MMC NEGATIVE (NEGATIVE)
[2024-05-02] MEDS ORDERED: Azithromycin 250 MG Tab PO ONE (12:15)
[2024-05-02] MEDS ORDERED: Ipratropium/Albuterol SulF 2.5-0.5MG/3 ML Amp INH SCH (13:15)
[2024-05-02] MEDS ORDERED: Albuterol 2.5 MG/3 ML VIAL INH PRN (13:15)
[2024-05-02] MEDS ORDERED: FLU VACC TS2024-25(6MOS UP)/PF 45 MCG/0.5 ML SYRINGE IM SCH (13:15)
[2024-05-02] MEDS ORDERED: Loperamide HCl 2 MG Cap PO ONE (14:15)
[2024-05-02] MEDS ORDERED: Cefepime HCl 2,000 MG in NS 100 ML IV SCH (16:00)
[2024-05-02 17:25] VITALS: BP 136/94
--- NOTE | 2024-05-02 18:07 | NUR ---
1730 RECEIVED PT TO RM 361 VIA W/C FROM ER. PT ABLE TO TX SELF TO BED WITH SBA D/T WEAKNESS AND SHAKING FROM STEROIDS. PT ADMITTED FOR COPD EXAC AND POSSIBLE PNM. IV ABX GIVEN IN ER. PT ADMITTED RECENTLY FOR SAME DX. PT ON RA WITH BIOX AT 96%. LUNGS T/O COARSE WITH EXP WHEEZES. SOB WITH VERY LITTLE EXERTION. PT STATING THAT SHE RECENTLY LOST HER A MONTH AGO; TEARFUL AT TIMES. A-FLUTTER @ 101 ON TELE. SITTING UP IN BED ATTEMPTING TO EAT SOME DINNER. VERY PLEASANT AND CO-OP. CALL LT IN REACH.
[2024-05-02 20:00] VITALS: BP 121/59
[2024-05-02] MEDS ORDERED: Metoprolol Succinate 50 MG TABCR PO SCH (21:00)
[2024-05-02] MEDS ORDERED: MethylPREDNISolone Sod Succ 125 MG Vial IV SCH (21:00)
[2024-05-02] MEDS ORDERED: Apixaban 5 MG Tab PO SCH (21:00)
[2024-05-02] MEDS ORDERED: Gabapentin 300 MG Cap PO SCH (21:00)
[2024-05-02] MEDS ORDERED: NS 250 ML IV PRN (23:05)
[2024-05-02] MEDS ORDERED: Guaifenesin/Dextromethorphan Syrup 5 ML UDC PO PRN (23:55)
[2024-05-03 04:21] VITALS: BP 132/82
[2024-05-03 05:05] LABS: BASOPHILS ABSOLUTE AUTO 0.01 K/mm3 (0.00-0.23); BASOPHILS PERCENT AUTO 0 % (0-2); EOSINOPHILS ABSOLUTE AUTO 0.01 K/mm3 (0.00-0.68); EOSINOPHILS PERCENT AUTO 0 % (0-6); Hematocrit 36.4 % (33.0-51.0); Hemoglobin 12.6 g/dL (11.5-16.0); IMMATURE GRAN ABSOLUTE AUTO 0.03 K/mm3 (0.00-0.10); IMMATURE GRAN PERCENT AUTO 0 % (0-1); LYMPHOCYTES ABSOLUTE AUTO 0.62 K/mm3 (0.84-5.20); LYMPHOCYTES PERCENT AUTO 7 % (21-46); MONOCYTES ABSOLUTE AUTO 0.54 K/mm3 (0.16-1.47); MONOCYTES PERCENT AUTO 6 % (4-13); Mean Corpuscular HGB 34.1 pg (26.0-34.0); Mean Corpuscular HGB Conc 34.6 g/dL (31.5-36.5); Mean Corpuscular Volume 99 fL (80-100); Mean Platelet Volume 10.2 fL (9.1-12.4); NEUTROPHILS ABSOLUTE AUTO 8.26 K/mm3 (1.96-9.15); NEUTROPHILS PERCENT AUTO 87 % (41-73); Platelet Count 200 K/mm3 (150-400); RDW Coefficient Variation 13.7 % (11.7-14.2); Red Blood Cell Count 3.69 M/mm3 (3.80-5.20); White Blood Cell Count 9.47 K/mm3 (4.00-11.30)
[2024-05-03 05:34] LABS: Bun/Creatinine Ratio 27.5 (12.0-20.0); Calcium, Blood 9.1 mg/dL (8.5-10.1); Creatinine, Blood 0.55 mg/dL (0.40-1.00); Potassium, Blood 4.4 mmol/L (3.5-5.5)
--- NOTE | 2024-05-03 06:29 | NUR ---
SHIFT SUMMARY: Pt admitted for COPD exacerbation and is a full code. Is alert and able to make needs known. ADLs have been 1p. Denies pain or discomfort when asked. Jose reported at the start of shift a flutter in the high 90s. On follow up near the end of shift jose reported same rate but conversion into a fib with PVCs. near the start off shift she stated that she was short of breath. SPO2 and respirations were WNL. 1LPM was applied via nc for about 20min until the feeling subsided.
[2024-05-03 07:47] VITALS: BP 129/96
[2024-05-03] MEDS ORDERED: Gabapentin 300 MG Cap PO SCH (09:00)
[2024-05-03] MEDS ORDERED: Lisinopril 10 MG Tab PO SCH (09:00)
[2024-05-03] MEDS ORDERED: Digoxin 0.125 MG Tab PO SCH (09:00)
[2024-05-03 16:10] VITALS: BP 122/74
--- NOTE | 2024-05-03 18:07 | NUR ---
SHIFT NOTE: PT PLEASANT AND COOPERATIVE WITH CARE. SHE IS A/OX4 ABLE TO USE CALL LIGHT APPROPRIATELY TO MAKE NEEDS KNONWN. SHE IS 1P ASSIT WITH ADLS. SHE IS ON TELE IN AFIB WITH RATE CONTROLLED IN THE 80S-90S. SHE DENIES CHEST PAIN/PRESSURE. SHE IS ON RA WITH A PRODUCTIVE COUGH. SHE IS SOB WITH EXERTION. SHE TAKES HER MEDS WHOLE WITH WATER. SHE DENIES NEEDS AT THIS TIME. WILL COINTINUE TO MONITOR AND REPORT TO ONCOMING RN
[2024-05-03 20:07] VITALS: BP 117/64
[2024-05-04 02:16] VITALS: BP 121/86
--- NOTE | 2024-05-04 05:10 | NUR ---
SHIFT SUMMARY PT REMAINS SOB WITH ACTIVITY. ACTIVITY LIMITED TO OOB TO BSC. COUGH HAS BEEN NONPRODUCTIVE, HACKING AT TIMES. IV ANTIBIOTICS AND STEROIDS CONTINUED. PT RESTING WITH EYES CLOSED THROUGH THE NIGHT. SIDERAILS UP X2, CALL LIGHT WITHIN REACH.
[2024-05-04 07:48] VITALS: BP 148/84
[2024-05-04] MEDS ORDERED: Furosemide 10 MG/ML 4ML Vial IV ONE (11:00)
[2024-05-04] MEDS ORDERED: Magnesium Oxide 400 MG Tab PO SCH (11:00)
[2024-05-04] MEDS ORDERED: PredniSONE 20 MG Tab PO SCH (11:00)
[2024-05-04 15:50] VITALS: BP 119/81
--- NOTE | 2024-05-04 18:23 | NUR ---
Pt A&Ox4, VSS, RA, SOB on exertion, Afib/Aflutter in 80s on tele. Able to make needs known. 1 time dose of lasix given, good urine output to BSC. 1 small BM this shift. PIV was leaking, removed and new PIV placed in L FA. Cefapime and solumedrol continued. Call light in reach.
[2024-05-04 20:24] VITALS: BP 132/80
[2024-05-05 05:29] VITALS: BP 126/89
[2024-05-05 05:30] VITALS: BP 126/89
--- NOTE | 2024-05-05 06:10 | NUR ---
SHIFT SUMMARY NONPRODUCTIVE COUGH CONTINUES OFF/ON THROUGH THE NIGHT. SOB WITH ACTIVITY. OOB TO BSC. PT RESTING THROUGH THE NIGHT. CALL LIGHT WITHIN REACH. SIDERAILS UP X2.
[2024-05-05 07:35] VITALS: BP 119/69
[2024-05-05] MEDS ORDERED: GUAIASORB DM 2118 ML PO (14:38)
[2024-05-05] MEDS ORDERED: Prednisone10 MG PO (14:45)
[2024-05-05] MEDS ORDERED: CEFD300 PO (14:46)
--- NOTE | 2024-05-05 16:06 | NUR ---
DISCHARGE: PT D/C @1605 VIA WHEELCHAIR WITH SON. MEDICATIONS FAXED TO [facility]. IV REMOVED BY PEER SPECIALIST W/O COMPLICATIONS. TELE SENT BACK. HOME HEALTH TO FOLLOW-UP WITH PATIENT. PT AWARE TO MAKE FOLLOW-UP APPOINTMENT WITH PCP WITHIN 1-2 WEEKS. NO QUESTIONS AT TIME OF D/C.
--- NOTE | 2024-05-05 17:46 | NUR ---
SPOKE WITH DR. CASANOVA ASKING TO ADD NEW MEDICATION TO PT MED REC. SPOKE WITH [facility] ON [facility]. NEW MEDICATION OF BECLOMETHASONE 40MCG 1 PUFF BID.
== END 2024-05-05 16:06 | disposition home health service (06) | DRG 189 ==
LOC: ER 09:50 → MEDS 13:12 → ENPENDDIS 05-05 13:42 → MEDS 05-05 16:06
PROVIDERS: Emergency Medicine; ADMIT Internal Medicine
DX: J96.01 Acute respiratory failure with hypoxia (principal); J44.1 Chronic obstructive pulmonary disease with (acute) exacerbation; J44.0 Chronic obstructive pulmonary disease with (acute) lower respiratory infection; I48.0 Paroxysmal atrial fibrillation; I10 Essential (primary) hypertension; I35.0 Nonrheumatic aortic (valve) stenosis; J43.9 Emphysema, unspecified; G47.33 Obstructive sleep apnea (adult) (pediatric); F41.9 Anxiety disorder, unspecified; E11.319 Type 2 diabetes mellitus with unspecified diabetic retinopathy without macular edema; J20.9 Acute bronchitis, unspecified; K75.81 Nonalcoholic steatohepatitis (NASH); Z90.710 Acquired absence of both cervix and uterus; Z87.891 Personal history of nicotine dependence; Z98.890 Other specified postprocedural states; Z88.6 Allergy status to analgesic agent; Z79.51 Long term (current) use of inhaled steroids; Z79.01 Long term (current) use of anticoagulants; Z79.52 Long term (current) use of systemic steroids; Z79.899 Other long term (current) drug therapy
CPT/HCPCS: 0241U; 36415; 71046; 80048; 80053; 83735; 83880; 85025; 93005; 93010; 94640; 94664; 94760; 96365; 96375; 97116; 97162; 97165; 97530; 97535; 99285-25; A9270; J0692; J1940; J2919; J3475; J7050; J7512

== ENCOUNTER 2024-05-28 20:36 | Emergency (ER) | payer MEDICARE ==
[~2024-05-28] VITALS: Ht 177.8 cm; Wt 73.9 kg
[~2024-05-28 20:36] MED LIST changes: +CEFD300 PO; +GUAIASORB DM 2118 ML PO
[2024-05-28 21:18] LABS: BASOPHILS ABSOLUTE AUTO 0.06 K/mm3 (0.00-0.23); BASOPHILS PERCENT AUTO 1 % (0-2); EOSINOPHILS ABSOLUTE AUTO 0.22 K/mm3 (0.00-0.68); EOSINOPHILS PERCENT AUTO 3 % (0-6); Hematocrit 34.1 % (33.0-51.0); Hemoglobin 11.6 g/dL (11.5-16.0); IMMATURE GRAN ABSOLUTE AUTO 0.01 K/mm3 (0.00-0.10); IMMATURE GRAN PERCENT AUTO 0 % (0-1); LYMPHOCYTES ABSOLUTE AUTO 0.74 K/mm3 (0.84-5.20); LYMPHOCYTES PERCENT AUTO 12 % (21-46); MONOCYTES ABSOLUTE AUTO 0.58 K/mm3 (0.16-1.47); MONOCYTES PERCENT AUTO 9 % (4-13); Mean Corpuscular HGB 33.8 pg (26.0-34.0); Mean Corpuscular Volume 99 fL (80-100); Mean Platelet Volume 9.1 fL (9.1-12.4); NEUTROPHILS ABSOLUTE AUTO 4.79 K/mm3 (1.96-9.15); NEUTROPHILS PERCENT AUTO 75 % (41-73); Platelet Count 205 K/mm3 (150-400); RDW Coefficient Variation 14.2 % (11.7-14.2); RDW Standard Deviation 51.2 fL (35.1-46.3); Red Blood Cell Count 3.43 M/mm3 (3.80-5.20)
[2024-05-28 21:37] LABS: Albumin, Blood 3.1 g/dL (3.4-5.0); Albumin/Globulin Ratio 0.9 (0.8-1.8); Bilirubin, Total 0.6 mg/dL (0.1-1.0); Bun/Creatinine Ratio 25.2 (12.0-20.0); Calcium, Blood 9.2 mg/dL (8.5-10.1); Creatinine, Blood 0.44 mg/dL (0.40-1.00); Globulin, Blood 3.4 g/dL (2.2-4.0); Potassium, Blood 4.2 mmol/L (3.5-5.5); Total Protein, Blood 6.5 g/dL (6.4-8.2)
[2024-05-28 22:00] VITALS: BP 153/81
[2024-05-28] MEDS ORDERED: PRED20 PO (22:12)
== END 2024-05-28 22:39 | disposition home or self-care (01) ==
LOC: ER 20:36
PROVIDERS: Emergency Medicine
DX: I48.91 Unspecified atrial fibrillation (principal); J44.1 Chronic obstructive pulmonary disease with (acute) exacerbation; Z88.5 Allergy status to narcotic agent; Z79.899 Other long term (current) drug therapy; I48.0 Paroxysmal atrial fibrillation; I10 Essential (primary) hypertension; E11.9 Type 2 diabetes mellitus without complications; G47.33 Obstructive sleep apnea (adult) (pediatric); Z87.891 Personal history of nicotine dependence
CPT/HCPCS: 71046; 80053; 84484; 85025; 93005; 93010; 99285-25

== ENCOUNTER 2024-06-27 10:36 | Emergency (ER) | payer OTHER, MEDICARE ==
[~2024-06-27] VITALS: Ht 177.8 cm; Wt 73.9 kg
[2024-06-27] MEDS ORDERED: HYDROmorphone HCl/Pf 1MG SYR IV ONE ×2 (10:45→14:05)
[2024-06-27] MEDS ORDERED: Ondansetron HCl 2 MG / ML 2ML Vial IV ONE (10:45)
[2024-06-27] MEDS ORDERED: Ketorolac Tromethamine 15mg Vial IV ONE (12:45)
[2024-06-27] MEDS ORDERED: Acetaminophen 500 MG Tab PO ONE (12:45)
[2024-06-27] MEDS ORDERED: HYDR1TAB94 PO (15:53)
[2024-06-27 16:45] VITALS: BP 146/100
== END 2024-06-27 16:50 | disposition home or self-care (01) ==
LOC: ER 10:36
DX: S83.92XA Sprain of unspecified site of left knee, initial encounter (principal); M25.462 Effusion, left knee; M54.50 Low back pain, unspecified; G89.29 Other chronic pain; E11.9 Type 2 diabetes mellitus without complications; I10 Essential (primary) hypertension; W01.0XXA Fall on same level from slipping, tripping and stumbling without subsequent striking against object, initial encounter; Z87.891 Personal history of nicotine dependence; Z79.899 Other long term (current) drug therapy; Z79.52 Long term (current) use of systemic steroids; Z88.5 Allergy status to narcotic agent
CPT/HCPCS: 72100; 73562-LT; 96374; 96375; 96376; 99284-25; A9270; J1171; J1885; J2405